=== PATIENT | female | born 1945 | race African-American/Black ===

== ENCOUNTER 2017-11-06 06:05 | Day surgery (SDC) | payer OTHER ==
[2017-11-04 15:48] VITALS: BMI 34.9
[~2017-11-06 06:05] MED LIST: MICROFIBRILLAR COLLAGEN 1 GM EACH TP ONE
[2017-11-06] MEDS ORDERED: PROPOFOL 20 ML ONE ×2 (07:05→09:17)
[2017-11-06] MEDS ORDERED: LIDOCAINE HCL 2% 100 MG/5 ML DISP.SYRIN ONE (07:05)
[2017-11-06] MEDS ORDERED: fentaNYL CITRATE 250 MCG/5 ML VIAL ONE (07:05)
[2017-11-06] MEDS ORDERED: DEXAMETHASONE SOD PHOSPHATE 4 MG/1 ML VIAL ONE (07:05)
[2017-11-06] MEDS ORDERED: SUCCINYLCHOLINE CHLORIDE 200 MG/10 ML VIAL ONE (07:06)
[2017-11-06] MEDS ORDERED: MIDAZOLAM HCL 2 MG/2 ML SINGLE DOSE VIAL ONE (07:06)
[2017-11-06] MEDS ORDERED: DESFLURANE GAS 240 ML BOTTLE IH ONE (07:17)
[2017-11-06] MEDS ORDERED: LIDOCAINE 1%/EPI 1:100000 (20 ML MULTI DOSE VIAL) ONE (07:32)
[2017-11-06] MEDS ORDERED: BENZOIN/ALOE VERA/STORAX/TOLU 58 ML BOTTLE ONE (07:33)
[2017-11-06] MEDS ORDERED: MICROFIBRILLAR COLLAGEN 1 GM EACH ONE (07:33)
[2017-11-06] MEDS ORDERED: ceFAZolin SODIUM 1 GM VIAL IVPB ONE (08:00)
[2017-11-06] MEDS ORDERED: ceFAZolin SODIUM 1 GM VIAL ONE (08:07)
[2017-11-06] MEDS ORDERED: ePHEDrine SULFATE 50 MG/1 ML AMPULE ONE (08:19)
[2017-11-06] MEDS ORDERED: BUPIVACAINE HCL/PF 0.5% (5MG/ML) 10 ML VIAL ONE (08:32)
[2017-11-06] MEDS ORDERED: LIDOCAINE 1%/EPI 1:100000 (50 ML MULTI DOSE VIAL) INF ONE (08:34)
[2017-11-06] MEDS ORDERED: BUPIVACAINE HCL/PF 0.5% (5MG/ML) 10 ML VIAL IJ ONE (08:34)
[2017-11-06] MEDS ORDERED: MICROFIBRILLAR COLLAGEN 1 GM EACH TP ONE (09:55)
[2017-11-06] MEDS ORDERED: LACTATED RINGERS SOLUTION 1,000 ML IV SCH (10:15)
[2017-11-06] MEDS ORDERED: oxyCODONE HCL 5 MG TABLET PO PRN ×2 (10:24)
[2017-11-06] MEDS ORDERED: ONDANSETRON 4 MG/2 ML VIAL IVPUSH PRN (10:25)
[2017-11-06] MEDS ORDERED: CALCIUM CARBONATE 650 MG TABLET PO SCH ×2 (11:00→22:00)
[2017-11-06] MEDS ORDERED: CALCITRIOL 0.25 MCG CAPSULE (FP) PO SCH ×2 (11:00)
[2017-11-06] MEDS ORDERED: CALCIUM CARBONATE 650 MG TABLET PO ONE (14:30)
--- NOTE | 2017-11-06 14:42 | OP ---
Operative Note - Note: Operative Date: 11/06/17 Pre-Operative Diagnosis: multiple thyroid nodules Operation: total thyroidectomy Surgeon: Niko Christy Web Press Operator Helper Offset: Ayaka Berrios Anesthesiologist/HEALTH PLAN SPECIALIST: Kj Storm Anesthesia: General Specimens Removed: thyroid Estimated Blood Loss (mls): 50 Fluid Volume Replaced (mls): 700 Operative Report Dictated: Yes
--- NOTE | 2017-11-06 14:43 | SURG ---
Surgery Care Program Director Note Care Program Director: Ayaka Berrios PA-C Date of Service: 11/06/17 Diagnosis: multiple thyroid nodule Procedure: total thyroidectomy I was present for the entirety of the operative procedure. For further detail, please refer to operative report. Visit type - Case Type Case Type: Scheduled Admission - Emergency Emergency Visit: No - New patient This patient is new to me today: Yes Date on this admission: 11/06/17
[2017-11-06] MEDS ORDERED: PT OWN MED DRAWER 7, Y5N ONE ×2 (16:36→17:09)
[2017-11-06] MEDS ORDERED: REPAGLINIDE 2 MG TABLET (FP) PO SCH (17:00)
[2017-11-06] MEDS: REPAGLINIDE 1 MG TABLET PO SCH (18:17)
[2017-11-06] MEDS: ACETAMINOPHEN 325 MG TABLET (FP) PO PRN (18:42)
[2017-11-06] MEDS ORDERED: ATORVASTATIN CA 20 MG TABLET (FP) PO SCH (22:00)
[2017-11-06] MEDS: CALCIUM CARBONATE 650 MG TABLET PO SCH (22:02)
[2017-11-07 06:15] VITALS: BP 130/75; PULSE 75; TEMP 97.9
[2017-11-07] MEDS: REPAGLINIDE 1 MG TABLET PO SCH (06:44)
[2017-11-07] MEDS ORDERED: REPAGLINIDE 1 MG TABLET PO SCH (07:30)
--- NOTE | 2017-11-07 07:55 | OP ---
DATE OF OPERATION: 11/06/2017 SURGICAL ATTENDING: Eliseo Hutchins MD PREOPERATIVE DIAGNOSIS: Thyroid nodules. POSTOPERATIVE DIAGNOSIS: Thyroid nodules. ANESTHESIA: General endotracheal. PROCEDURE: Total thyroidectomy. DESCRIPTION OF PROCEDURE: The patient was taken into the operating room, placed in supine position, endotracheally intubated. Nerve monitoring device was placed. Neck ultrasound was performed, showing bilateral thyroid nodularity with no lymphadenopathy. The patient was then prepped and draped in the usual sterile fashion. Local anesthesia was administered, and a 7-cm horizontal incision was made in the mid-neck anteriorly. This was carried down through subcutaneous tissues and platysma. Subplatysmal flaps were raised superiorly and inferiorly, and flap hooks were placed for exposure. The median raphe was incised, and the strap muscles were elevated bilaterally. Dissection began on the right side where the recurrent and superior laryngeal nerves were identified and preserved. The parathyroid glands were also preserved. The superior, posterior, and inferior attachments were transected. In this way, the thyroid gland was lifted up, taken off the trachea. The isthmus was transected, and in this way, the right thyroid lobe was removed. It was examined, and no parathyroid tissue was seen. It was then passed off the field and sent to Pathology. Dissection then continued on the left side where the recurrent and superior laryngeal nerves were identified and preserved. The parathyroid glands were also preserved on the left. The superior, posterior, and inferior attachments were transected, and the thyroid gland was taken off of the trachea. In this way, the left thyroid lobe was removed. It was inspected for parathyroid tissue; none was found. It was then sent to Pathology for final evaluation. Hemostasis was achieved with electrocautery and Avitene. Valsalva maneuvers were performed, and hemostasis was assured. The wound was then closed in 3 layers. Sterile dressings were placed. The patient was then awakened, extubated, and taken to Recovery in stable condition. Dr. Hutchins, the attending surgeon, was present throughout the entire procedure. ELISEO HUTCHINS M.D. [id number]
[2017-11-07] MEDS ORDERED: ATENOLOL 50 MG TABLET (FP) PO SCH (10:00)
[2017-11-07] MEDS ORDERED: CALCIUM CARBONATE 650 MG TABLET PO SCH (10:00)
[2017-11-07] MEDS ORDERED: amLODIPine BESYLATE 10 MG TABLET (FP) PO SCH (10:00)
[2017-11-07] MEDS ORDERED: PATIENT'S OWN MEDICATION (NON-FORMULARY) (Atenolol [Tenormin -] 100 MG) PO SCH (10:00)
[2017-11-07] MEDS ORDERED: CALCITRIOL 0.25 MCG CAPSULE (FP) PO SCH (10:00)
[2017-11-07] MEDS ORDERED: SPIRONOLACTONE 25 MG TABLET (FP) PO SCH (10:00)
[2017-11-07] MEDS ORDERED: PT OWN MED DRAWER 7, Y5N ONE (10:30)
[2017-11-07] MEDS: CALCIUM CARBONATE 650 MG TABLET PO SCH (10:44)
[2017-11-07] MEDS: ACETAMINOPHEN 325 MG TABLET (FP) PO PRN (13:15)
--- NOTE | 2017-11-07 13:33 | PN ---
Progress Note, Physician - Current Medication List Current Medications: Active Medications Acetaminophen (Tylenol -) 650 mg PO Q6H PRN PRN Reason: PAIN LEVEL 1-5 Last Admin: 11/07/17 13:15 Dose: 650 mg Amlodipine Besylate (Norvasc -) 10 mg PO DAILY [facility] Last Admin: 11/07/17 10:42 Dose: 10 mg Atenolol (Tenormin -) 100 mg PO DAILY [facility] Last Admin: 11/07/17 10:43 Dose: 100 mg Atorvastatin Calcium (Lipitor -) 20 mg PO HS [facility] Last Admin: 11/06/17 21:18 Dose: 20 mg Calcium Carbonate (Calcium Carbonate -) 1,625 mg PO BID [facility] Last Admin: 11/07/17 10:44 Dose: 1,620 mg Ondansetron HCl (Zofran Injection) 4 mg IVPUSH Q6H PRN PRN Reason: NAUSEA AND/OR VOMITING Oxycodone HCl (Roxicodone -) 5 mg PO Q6H PRN PRN Reason: PAIN LEVEL 1-5 Oxycodone HCl (Roxicodone -) 10 mg PO Q6H PRN PRN Reason: PAIN LEVEL 6-10 Repaglinide (Prandin -) 5 mg PO BID@0730,1700 [facility] Last Admin: 11/07/17 06:44 Dose: 5 mg Spironolactone (Aldactone -) 25 mg PO DAILY [facility] Last Admin: 11/07/17 10:42 Dose: 25 mg - Objective Vital Signs: Vital Signs Temperature 97.9 F 11/07/17 06:00 Pulse Rate 75 11/07/17 06:00 Respiratory Rate 20 11/07/17 06:00 Blood Pressure 130/75 11/07/17 06:00 O2 Sat by Pulse Oximetry (%) 97 11/06/17 13:55 Assessment/Plan Surgery Covering for Dr. lawton. patient is alert and oriented. C/O local pain at the operative site. No sign of hypocalcemia, she has her normal voice. No hematoma. discharge home . Will be followed by Dr. Lawton.
--- NOTE | 2017-11-10 09:39 | PATH ---
Surgical Pathology Report Patient Name: STORMY CARR [facility]. Rec. #: [id number] /Age/Gender: 1945 (Age: 71) / F Account: [id number] Location: AMBULATORY SURG Taken: 11/06/2017 Received: 11/06/2017 Reported: 11/10/2017 Physicians: Niko Christy M.D. Specimen(s) Received A: RIGHT THYROID LOBE B: LEFT THYROID LOBE Clinical History Neck mass Final Diagnosis A. THYROID, RIGHT LOBE AND ISTHMUS, LOBECTOMY: BENIGN MULTINODULAR GOITER, 121 GRAMS. ONE BENIGN PARATHYROID GLAND IDENTIFIED. B. THYROID, LEFT LOBE, LOBECTOMY: BENIGN MULTINODULAR GOITER, 27 GRAMS. Electronically Signed Derrick Portillo M.D. Gross Description A. Received in formalin labeled "right thyroid lobe," is a 121 g, 8.5 x 4.7 x 4.5 cm right thyroid lobe with an attached 4.5 x 3.5 x 1.9 cm isthmus. The outer capsule is red brown with focal defects. Sectioning reveals abundant heterogeneous, focally hemorrhagic and focally calcified colloid nodules measuring up to 3.0 cm in greatest dimension. There is no normal residual thyroid parenchyma within the right lobe or the isthmus. Computer Numerical Control Machinist sections are submitted in 13 cassettes as follows: 7-0-[id number] right lobe from superior to inferior; 99-38-[id number] isthmus from left to right. B. Received in formalin labeled "left thyroid lobe," is a 27 g, 5.2 x 3.4 x 2.6 cm left thyroid lobe. The outer capsule is red-brown with focal defects. Sectioning reveals multiple charles-red, heterogeneous, focally hemorrhagic colloid nodules measuring up to 2.1 cm in greatest dimension. No normal thyroid parenchyma is identified. Computer Numerical Control Machinist sections are sequentially submitted from superior to inferior in 7 cassettes. /11/06/201711/06/2017
== END 2017-11-07 14:46 | disposition home or self-care (01) ==
LOC: JASUSAT 06:05 → JASU-SURG 06:05 → J8W 13:34 → JASUSAT 11-07 14:46
PROVIDERS: ATTEND Surgery
PROC: 0GBJ0ZZ Excision of Thyroid Gland Isthmus, Open Approach (ICD-10-PCS; 2017-11-06)
PROC: 0GTK0ZZ Resection of Thyroid Gland, Open Approach (ICD-10-PCS; principal; 2017-11-06 07:30)
DX: E04.2 Nontoxic multinodular goiter (principal); R22.1 Localized swelling, mass and lump, neck; E66.01 Morbid (severe) obesity due to excess calories; I10 Essential (primary) hypertension; E11.9 Type 2 diabetes mellitus without complications
CPT/HCPCS: 82962; 88307-TC; 94760